=== PATIENT | male | born 1995 | race Two or more races ===

== ENCOUNTER 2019-03-21 14:45 | Emergency (ER) | payer BC, OTHER ==
--- NOTE | 2019-03-21 14:55 | NUR ---
CALLED PATIENT, NO RESPONSE. PATIENT TOLD ADMITTING HE WAS LEAVING AND GOING TO A DIFFERENT HOSPITAL. PATIENT LEFT WITHOUT BEING SEEN AT 1455.
== END 2019-03-21 14:55 | disposition left against medical advice (07) ==
LOC: MED 14:45
DX: Z53.21 Procedure and treatment not carried out due to patient leaving prior to being seen by health care provider (principal)